=== PATIENT | male | born 1995 | race Caucasian/White ===

== ENCOUNTER 2017-09-15 00:19 | Emergency (ER) | payer SELFPAY ==
[~2017-09-15] VITALS: Ht 180.3 cm; Wt 70.0 kg
[2017-09-15 04:09] VITALS: BP 102/56
== END 2017-09-15 05:44 | disposition left against medical advice (07) ==
LOC: ER 00:19
DX: R10.9 Unspecified abdominal pain (principal); Z53.21 Procedure and treatment not carried out due to patient leaving prior to being seen by health care provider